=== PATIENT | female | born 1970 | race Two or more races ===

== ENCOUNTER 2020-10-18 22:43 | Inpatient (IN) | payer SELFPAY ==
[2020-10-18 23:19] LABS: ABSOLUTE BASOPHILS # (AUTO) 0.3 10^3/uL (0.0-0.2); ABSOLUTE EOSINOPHILS # (AUTO) 0.1 10^3/uL (0.0-0.6); ABSOLUTE LYMPHOCYTES (AUTO) 3.2 10^3/uL (0.5-4.7); ABSOLUTE MONOCYTES (AUTO) 0.4 10^3/uL (0.1-1.4); ABSOLUTE NEUT (AUTO) 11.1 10^3/uL (1.7-8.2); BASOPHILS % (AUTO) 2.1 % (0-2); EOSINOPHILS % (AUTO) 0.7 % (0-6); HEMATOCRIT 41.7 % (36.0-47.0); LYMPHOCYTES % (AUTO) 21.1 % (13-45); MEAN CORPUSCULAR HGB CONC 33.5 g/dL (32.0-36.0); MEAN CORPUSCULAR VOLUME 99 fl (80-97); MONOCYTES % (AUTO) 2.6 % (3-13); PLATELET COUNT 440 10^3/uL (150-450); RED BLOOD COUNT 4.23 10^6/uL (3.72-5.28); RED CELL DISTRIBUTION WIDTH 13.7 % (11.5-14.0); SEGMENTED NEUTROPHILS % (AUTO) 73.5 % (42-78); TOTAL CELLS COUNTED % (AUTO) 100 %; WHITE BLOOD COUNT 15.1 10^3/uL (4.0-10.5)
[2020-10-18 23:40] LABS: ALBUMIN 3.8 g/dL (3.5-5.0); ALKALINE PHOSPHATASE 82 U/L (38-126); ANION GAP 5 (5-19); ASPARTATE AMINO TRANSFERASE 36 U/L (14-36); BILIRUBIN,DIRECT 0.3 mg/dL (0.0-0.4); BILIRUBIN,TOTAL 0.5 mg/dL (0.2-1.3); BLOOD UREA NITROGEN 8 mg/dL (7-20); CALCIUM 8.5 mg/dL (8.4-10.2); CARBON DIOXIDE 24 mmol/L (22-30); CHLORIDE 102 mmol/L (98-107); CREATINE KINASE 237 U/L (30-135); GLUCOSE 127 mg/dL (75-110); POTASSIUM 3.1 mmol/L (3.6-5.0); TOTAL PROTEIN 6.8 g/dL (6.3-8.2)
[2020-10-18] MEDS ORDERED: FENTANYL CITRATE INJ/PF 100 MCG/2 ML AMPUL IV ONE (23:40)
--- NOTE | 2020-10-18 23:48 | ER Document Report ---
ED General - General Chief Complaint: Chest Pain Stated Complaint: CHEST PAIN Time Seen by Provider: 10/18/20 23:30 - HPI Notes: Patient is a 50-year-old female who presents emergency department for evaluation of sudden onset right-sided chest pain. She was at home, standing up, not performing any activities out of the ordinary, when she developed sharp right- sided chest pain. It radiates up into her shoulder a bit. It is worsened with deep breaths. She received Dilaudid, aspirin, nitroglycerin in route and nothing helped her pain in any way. She is never had any pain like this in the past. She states that she is not really sure if she is short of breath, she just knows it hurts significantly to take deep breaths. - Related Data Allergies/Adverse Reactions: No Known Allergies Allergy (Verified 10/18/20 23:25) Home Medications: Montelukast. Prednisone. Oxycodone. Albuterol. OTC- Naproxen Past Medical History - General Information source: Patient - Social History Smoking Status: Current Every Day Smoker Chew tobacco use (# tins/day): No Frequency of alcohol use: Occasional Drug Abuse: None Family History: Malignancy - Lung cancer Pulmonary Medical History: Reports: Hx Asthma Musculoskeletal Medical History: Reports Hx Musculoskeletal Trauma - And resultant chronic back pain Past Surgical History: Reports: Other - Spinal injections Review of Systems - Review of Systems Constitutional: No symptoms reported EENT: No symptoms reported Cardiovascular: See HPI Respiratory: See HPI Gastrointestinal: No symptoms reported Genitourinary: No symptoms reported Musculoskeletal: No symptoms reported Skin: No symptoms reported Neurological/Psychological: No symptoms reported Physical Exam - Vital signs Vitals: Pulse Ox 98 10/18/20 22:45 - Notes Notes: This is a 50-year-old female who appears her stated age, in a moderate amount of distress. Vital signs reviewed, please refer to chart. Head is normocephalic, atraumatic. Pupils equal round, reactive to light. Neck is supple without meningismus. Heart is tachycardic with normal S1-S2. Lungs are clear to auscu ltation bilaterally. Chest wall excursion is equal bilaterally. No gross abnormality to visual inspection of chest wall. Chest wall is tender to palpation on the right inferior ribs without subcutaneous emphysema. Abdomen is firm, global tenderness with guarding, bowel sounds throughout. Extremities without cyanosis, clubbing. Posterior calves are nontender. Peripheral pulses are equal. Skin is warm and dry. Patient is awake, alert, neurological exam is nonfocal. Course - Re-evaluation Re-evalutation: 10/18/20 23:49 Patient presents emergency department for evaluation. She had sudden onset right-sided chest pain. She is significantly uncomfortable. She received Dilaudid with no help. I will try fentanyl. Her breath sounds are equal. I have ordered a chest x-ray but this is still pending. Given the significance of her pain as well as the guarding on her abdominal exam as well CTA of the chest abdomen pelvis is ordered. We will continue to monitor. 10/19/20 00:49 Free air seen on the chest x-ray. CT of the abdomen pelvis with IV contrast ordered instead of the angiogram. I will contact surgery. 10/19/20 01:47 Still awaiting official read from radiology, Dr. Major is here to evaluate the patient. 10/19/20 01:52 Dr. Major will admit the patient. 10/19/20 02:00 Patient is noted to be hypokalemic. It is not a priority to replace at this time as patient is to be kept n.p.o. and she is going to the OR. I did make sure that nurse was to report this and follow-up when the patient will goes to the ICU for postoperative care. 10/19/20 02:14 K rider ordered. Request for large bore IV in the right upper extremity passed on to nursing. - Vital Signs Vital signs: Temp Pulse Resp BP Pulse Ox 98.9 F 40 H 145/93 H 97 10/18/20 22:55 10/19/20 00:01 10/19/20 00:00 10/19/20 00:01 - Laboratory Results Result Diagrams: 10/18/20 22:54 10/18/20 22:54 Laboratory Results Interpreted: 10/18/20 10/18/20 10/18/20 22:54 22:54 22:54 WBC 15.1 H MCV 99 H [place] % (Auto) 2.6 L Baso % (Auto) 2.1 H Absolute Neuts (auto) 11.1 H Absolute Basos (auto) 0.3 H Sodium 131.4 L Potassium 3.1 L Glucose 127 H Creatine Kinase 237 H CK-MB (CK-2) 6.55 H Critical Laboratory Results Reviewed: No Critical Results - Radiology Results Radiology Results Interpreted: 10/19/20 01:53 Chest X-Ray 10/18/20 23:31 IMPRESSION: Findings concerning for free intra-abdominal air. Further evaluation with CT abdomen and pelvis is recommended if clinically appropriate. This report contains findings that may be critical for patient care. Findings were discussed with Dr. Null by Dr. Davidson via telephone on 10/18/2020 at 9:40 PM [facility]. Abdomen/Pelvis CT 10/19/20 00:44 IMPRESSION: 1. Pneumoperitoneum and scattered intermediate density fluid, likely hemorrhage. 2. This is likely due to a perforated gastric ulcer along the distal lesser curvature. 3. Colonic diverticulosis. Cannot exclude diverticulitis, but there is no suspicious colonic wall thickening. Critical Radiology Results Reviewed: Yes Attending or Supervising Physician who Reviewed Radiology: BASHIR NULL M - EKG Interpretation by Me Additional EKG results interpreted by me: 10/18/20 23:50 Sinus tachycardia with a rate of 121 bpm. Left axis deviation. Normal intervals. No acute ST changes concerning for ischemia or infarction. No old studies available for comparison. Discharge - Discharge Clinical Impression: Perforated abdominal viscus, Hypokalemia Condition: Stable Disposition: ADMITTED INPATIENT Admitting Provider: Surgicalist - [place] [facility] Admitted: OR
[2020-10-18 23:51] LABS: CREATINE KINASE MB 6.55 ng/mL (<4.55)
[2020-10-19 00:04] LABS: TROPONIN I < 0.012 ng/mL
--- NOTE | 2020-10-19 00:47 | RADIOLOGY REPORT (SQ) ---
EXAM DESCRIPTION: X-RAY CHEST- One View CLINICAL HISTORY: Chest pain COMPARISON: None available TECHNIQUE: Single view of the chest. FINDINGS: There are overlying EKG leads. There are low lung volumes with compressive changes. The pulmonary vascularity is normal. The cardiomediastinal silhouette is normal in size. Evaluation of the visualized upper abdomen demonstrates crescent of lucency under the right hemidiaphragm concerning for free intra-abdominal air. Osseous structures appear grossly intact. IMPRESSION: Findings concerning for free intra-abdominal air. Further evaluation with CT abdomen and pelvis is recommended if clinically appropriate. This report contains findings that may be critical for patient care. Findings were discussed with Dr. Null by Dr. Davidson via telephone on 10/18/2020 at 9:40 PM PST.
[2020-10-19] MEDS ORDERED: PIPERACILLIN/TAZOBACTAM 3.375 GM VIAL IV ONE (00:59)
[2020-10-19] MEDS ORDERED: NORMAL SALINE 1000 ML 1,000 ML IV ONE ×2 (00:59→01:59)
--- NOTE | 2020-10-19 01:31 | RADIOLOGY REPORT (SQ) ---
EXAM DESCRIPTION: Site: CT ABD/PELVIS WITH IV ONLY RP: CT ABDOMEN PELVIS WITH IV CONTRAST CLINICAL HISTORY: 50 years Female; Free air under the diaphragm; sudden onset severe epigastric pain TECHNIQUE: CT of the abdomen and pelvis using intravenous contrast. All CT scans at this facility use dose modulation, iterative reconstruction, and/or weight based dosing when appropriate to reduce radiation dose to as low as reasonably achievable. COMPARISON: Chest radiograph 10/19/2020. No previous CT. FINDINGS: Mild linear atelectasis in both lower lobes. Abdomen: Pneumoperitoneum, mostly upper abdomen, with scattered foci adjacent to the stomach. Stomach: There is wall thickening/edema, mostly along the lesser curvature and antrum. At the superior aspect of the distal stomach along the lesser curvature, there are foci of air consistent with defect in the wall. Scattered intermediate density fluid is seen over the liver and spleen. Liver:No focal lesions. No intrahepatic ductal distention. Gallbladder:Nondistended Pancreas:Within normal limits Spleen:Within normal limits Right kidney:No hydronephrosis. No focal lesion. Left kidney:No hydronephrosis. No focal lesion. Adrenal glands:Within normal limits Vascular structures:Within normal limits Pelvis: Small bowel:No significant distention. Appendix:Within normal limits Colon: Scattered diverticula. No colonic distention. Moderate amount of intermediate density fluid in the pelvis. Bones: No acute bone findings. Bladder: Unremarkable. No pelvic mass or adenopathy. IMPRESSION: 1. Pneumoperitoneum and scattered intermediate density fluid, likely hemorrhage. 2. This is likely due to a perforated gastric ulcer along the distal lesser curvature. 3. Colonic diverticulosis. Cannot exclude diverticulitis, but there is no suspicious colonic wall thickening.
--- NOTE | 2020-10-19 02:21 | PDOC H&P ---
History of Present Illness Admission Date/PCP: 10/19/20 02:01 History of Present Illness: NORMA BARDALES is a 50 year old female Presents emergency department complaining of acute onset right upper quadrant pain, shortness of breath, anxiousness. She was brought by [facility], found to be tachycardic. She had abdominal tenderness, with a chest x-ray immediately showing free air. Patient underwent CT scan of the abdomen and pelvis and was found to have diffuse pneumoperitoneum, with air tracking along the lesser sac consistent with a perforated gastric ulcer. Surgery was consulted, patient was advised admission, to undergo exploratory laparotomy and necessary surgery. Of note patient takes Percocet [id number], smokes a pack and a half of cigarettes per day and has been on steroids for asthma. Past Medical History Past Medical History: Asthma, smoking abuse, chronic back pain, steroid use Pulmonary Medical History: Reports: Asthma Past Surgical History Past Surgical History: Reports: Other - Spinal injections Social History Information Source: Patient Smoking Status: Current Every Day Smoker Electronic Cigarette use?: No Frequency of Alcohol Use: Rare Hx Recreational Drug Use: No Family History Family History: None, Malignancy - Lung cancer Parental Family History Reviewed: No Children Family History Reviewed: No Sibling(s) Family History Reviewed.: No Medication/Allergy Allergies/Adverse Reactions: No Known Allergies Allergy (Verified 10/18/20 23:25) Review of Systems Constitutional: PRESENT: as per HPI Eyes: ABSENT: visual disturbances Ears: ABSENT: hearing changes Gastrointestinal: PRESENT: other - As per HPI Genitourinary: ABSENT: dysuria, hematuria Musculoskeletal: PRESENT: back pain, other - Chronic, takes narcotics [id number] Psychiatric: ABSENT: anxiety, depression, homidical ideation, suicidal ideation Endocrine: ABSENT: cold intolerance, heat intolerance, polydipsia, polyuria Physical Exam Vital Signs: Temp Pulse Resp BP Pulse Ox 98.9 F 40 H 145/93 H 97 10/18/20 22:55 10/19/20 00:01 10/19/20 00:00 10/19/20 00:01 Intake & Output 10/17/20 10/18/20 10/19/20 06:59 06:59 06:59 Weight 79.3 kg General appearance: PRESENT: other - Very anxious, agitated; heart rate in the 110s Head exam: PRESENT: normocephalic Eye exam: PRESENT: EOMI Mouth exam: PRESENT: dry mucosa Neck exam: PRESENT: full ROM Respiratory exam: PRESENT: rhonchi Cardiovascular exam: PRESENT: tachycardia Pulses: PRESENT: normal carotid pulses, normal radial pulses, normal femoral pulses GI/Abdominal exam: PRESENT: other - Rigid abdomen with guarding Rectal exam: PRESENT: deferred Extremities exam: PRESENT: full ROM Musculoskeletal exam: PRESENT: full ROM Neurological exam: PRESENT: oriented to person, oriented to place Psychiatric exam: PRESENT: anxious Results Laboratory Results: 10/18/20 22:54 10/18/20 22:54 10/18/20 10/18/20 22:54 22:54 WBC 15.1 H RBC 4.23 Hgb 14.0 Hct 41.7 MCV 99 H MCH 33.0 MCHC 33.5 RDW 13.7 Plt Count 440 Seg Neutrophils % 73.5 Sodium 131.4 L Potassium 3.1 L Chloride 102 Carbon Dioxide 24 Anion Gap 5 BUN 8 Creatinine 0.71 Est GFR ( Amer) > 60 Glucose 127 H Calcium 8.5 Total Bilirubin 0.5 AST 36 Alkaline Phosphatase 82 Total Protein 6.8 Albumin 3.8 10/18/20 10/18/20 22:54 22:54 Creatine Kinase 237 H CK-MB (CK-2) 6.55 H Troponin I < 0.012 Impressions: Chest X-Ray 10/18/20 23:31 IMPRESSION: Findings concerning for free intra-abdominal air. Further evaluation with CT abdomen and pelvis is recommended if clinically appropriate. This report contains findings that may be critical for patient care. Findings were discussed with Dr. Null by Dr. Davidson via telephone on 10/18/2020 at 9:40 PM [facility] [email or web address] Abdomen/Pelvis CT 10/19/20 00:44 IMPRESSION: 1. Pneumoperitoneum and scattered intermediate density fluid, likely hemorrhage. 2. This is likely due to a perforated gastric ulcer along the distal lesser curvature. 3. Colonic diverticulosis. Cannot exclude diverticulitis, but there is no suspicious colonic wall thickening. Assessment & Plan - Diagnosis (1) Perforated abdominal viscus Is this a current diagnosis for this admission?: Yes Plan: Impression: Acute abdomen, with pneumoperitoneum secondary to perforated gastric ulcer in 50-year-old white female with history of heavy smoking, chronic narcotic use and steroid use for asthma Plan: 1. Patient needs admission, IV fluids, intravenous antibiotics, potassium replacement 2. We will obtain rapid Covid test 3. Take patient to the operating room for exploratory laparotomy, necessary surgery. Explained to patient she will be sick, requiring hospitalization for several days (2) Chronic narcotic use Is this a current diagnosis for this admission?: Yes (3) COPD (chronic obstructive pulmonary disease) Is this a current diagnosis for this admission?: Yes (4) Smoker Is this a current diagnosis for this admission?: Yes (5) Asthma Is this a current diagnosis for this admission?: Yes (6) Hypokalemia Is this a current diagnosis for this admission?: Yes - Time Time Spent: 50 to 70 Minutes Critical Time spent with patient: 15-24 minutes Medications reviewed and adjusted accordingly: Yes Anticipated Discharge Disposition: Home, Self Care Anticipated Discharge Timeframe: within 72 hours - Inpatient Certification Based on my medical assessment, after consideration of the patient's comorbidities, presenting symptoms, or acuity I expect that the services needed warrant INPATIENT care.: Yes I certify that my determination is in accordance with my understanding of Medicare's requirements for reasonable and necessary INPATIENT services [42 CFR 412.3e].: Yes Medical Necessity: Need for Pain Control, Need for IV Antibiotics, Need for Surgery
[2020-10-19] MEDS: POTASSI CL 20 MEQ/50 ML RIDER 20 MEQ/50 ML RTUPB IV SCH ×2 (02:51→14:25)
[2020-10-19] MEDS ORDERED: ONDANSETRON HCL INJ/PF 4 MG/2 ML SDV ONE (03:06)
[2020-10-19] MEDS ORDERED: FENTANYL CITRATE INJ/PF 100 MCG/2 ML AMPUL ONE ×2 (03:06→05:28)
[2020-10-19] MEDS ORDERED: MORPHINE SULFATE 10 MG/ML INJ ONE (03:06)
[2020-10-19] MEDS ORDERED: SUGAMMADEX SODIUM 200 MG/2 ML SDV IV ONE (03:06)
[2020-10-19] MEDS ORDERED: DEXAMETHASONE SOD PHOSPHATE INJ 4 MG/1 ML VIAL ONE ×2 (03:06→03:10)
[2020-10-19] MEDS ORDERED: PROPOFOL INJ 200 MG/20 ML VIAL IV ONE (03:06)
[2020-10-19] MEDS ORDERED: MIDAZOLAM 2 MG/2 ML INJ ONE (03:06)
[2020-10-19] MEDS ORDERED: FENTANYL CITRATE INJ/PF 250 MCG/5 ML AMPULE ONE ×2 (03:06→03:16)
[2020-10-19] MEDS ORDERED: FENTANYL CITRATE INJ/PF 100 MCG/2 ML AMPUL IV PRN ×2 (03:56)
[2020-10-19] MEDS ORDERED: DIPHENHYDRAMINE HCL 50 MG/ML VIAL IV PRN (03:56)
[2020-10-19] MEDS ORDERED: MEPERIDINE HCL/PF INJ 25 MG/1 ML DISP.SYRIN IV PRN (03:56)
[2020-10-19] MEDS ORDERED: MORPHINE SULFATE 10 MG/ML INJ IV PRN (03:56)
[2020-10-19] MEDS ORDERED: PROMETHAZINE HCL INJ 25 MG/1 ML VIAL IV PRN ×2 (03:56)
[2020-10-19] MEDS ORDERED: ROPIVACAINE HCL 0.5% INJ/PF (5 MG/1 ML) 30 ML SDV ONE (04:07)
[2020-10-19] MEDS ORDERED: BUPIVACAINE INJ/PF LIPOSOME/PF 266 MG/20 ML SDV ONE (04:24)
[2020-10-19] MEDS ORDERED: FLUCONAZOLE 200 MG/NS RTU 200 MG/100 ML RTUPB IV ONE (04:47)
--- NOTE | 2020-10-19 05:01 | Operative Report ---
Operative Report DATE OF SURGERY: 10/19/20 PREOPERATIVE DIAGNOSIS: 1. Perforated gastric ulcer. 2. COPD. 3. Steroid u se. 4. Smoker POSTOPERATIVE DIAGNOSIS: Same with purulent peritonitis OPERATION: 1. Exploratory laparotomy with abdominal washout. 2. Primary richelle sure of anterior antral ulcer with Shahab patch. 3. Placement of peritoneal drains SURGEON: JOVANI FISHER ANESTHESIA: GA TISSUE REMOVED OR ALTERED: Small fragment of gastric ulcer wall COMPLICATIONS: None ESTIMATED BLOOD LOSS: 15 cc INTRAOPERATIVE FINDINGS: See below PROCEDURE: The patient was taken the preop holding her to the main operating room and general anesthesia was induced. Arms were abducted, Dominguez catheter inserted, with a return of mildly dark urine. The abdomen was prepped and draped in sterile fashion. Surgical timeout was conducted, surgical plan discussed. The abdomen was opened through a standard midline incision from the subxiphoid to the supraumbilical area. Peritoneal cavity was entered sharply with the release of air. There were several 100 cc of purulent peritoneal fluid aspira oscar. Bookwalter retractor system was established, and the peritoneal cavity was irrigated with close to 5 L of saline, ensuring fluid from around the liver, diaphragm, viscera, and pelvis was evacuated. The falciform ligament was taken down between clamps and 0 Vicryl ties. The findings were significant for approximately 1/2 to 2 cm ulcer, prepyloric, distal antrum, anterior surface. There was no active bleeding. The plane between the distal greater curvature of the stomach, and the transverse colon was opened slightly to exposed the distal lesser sac. This enabled us to manipulate the nasogastric tube through the pylorus, down into the first and second portions of the duodenum by approximately 15 cm. We now closed the distal antral ulcer with 5 interrupted 3-0 PDS sutures, in a vertical fashion. We then took the suture ends, after the knots were tied, and left them free. We mobilized a small pedicle of omentum with electrocautery and 3-0 Vicryl ties, and elevated it over the antral closure. We now secured the loose suture ends over the pedicle thereby securing it into position as a buttress. We irrigated the peritoneal cavity out 1 more time with a liter of saline. 2 l arge drains were placed 1 left abdominal wall terminating above the antrum in a cephalic position, and the right sided abdominal wall drain terminating over the duodenum. Drains were secured to the skin with 2-0 Prolene suture. There was no other pathology noted in the peritoneal cavity. Sponge needle counts correct. Midline wound closed with 2 double-stranded #1 PDS sutures, and a cc of Exparel deployed and subcutaneous tissue, wound approximated with milton in between portions of gauze packing. Patient tolerated the procedure well, extubated, taken to recovery room in stable condition.
[2020-10-19] MEDS: FENTANYL CITRATE INJ/PF 100 MCG/2 ML AMPUL IV PRN ×2 (05:28→05:33)
[2020-10-19] MEDS ORDERED: ALBUTEROL SULFATE HFA (90 MCG/PUFF) 8 GM MDI IH SCH (06:00)
[2020-10-19] MEDS ORDERED: ACETAMINOPHEN INJ/PF 1000 MG/100 ML SDV IV SCH (06:00)
[2020-10-19] MEDS: RINGERS SOLUTION,LACTATED 1,000 ML IV PRN ×2 (07:28→11:30)
[2020-10-19] MEDS: ACETAMINOPHEN 1,000 MG/100 ML RTUPB IV SCH ×4 (07:37→23:40)
[2020-10-19] MEDS ORDERED: ROCURONIUM BROMIDE INJ 50 MG/5 ML VIAL IV ONE (09:51)
[2020-10-19] MEDS ORDERED: SUCCINYLCHOLINE CHLORIDE INJ 200 MG/10 ML VIAL ONE (09:51)
[2020-10-19 09:53] LABS: ANION GAP 5 (5-19); BLOOD UREA NITROGEN 8 mg/dL (7-20); CALCIUM 7.8 mg/dL (8.4-10.2); CARBON DIOXIDE 22 mmol/L (22-30); CHLORIDE 108 mmol/L (98-107); GLUCOSE 114 mg/dL (75-110)
[2020-10-19 10:03] LABS: POTASSIUM 4.9 mmol/L (3.6-5.0)
[2020-10-19] MEDS: FAMOTIDINE INJ/PF 20 MG/2 ML SDV IV SCH ×2 (12:49→21:50)
[2020-10-19] MEDS: AMPICILLIN SODIUM/SULBACTAM NA 3 GM in NORMAL SALINE 100 ML IV SCH ×3 (13:09→21:49)
[2020-10-19] MEDS: ALBUTEROL SULFATE HFA (90 MCG/PUFF) 8 GM MDI IH SCH ×3 (13:12→17:58)
--- NOTE | 2020-10-19 14:27 | PDOC PROGRESS REPORT ---
Subjective Date:: 10/19/20 Reason For Visit: PERFORATED VISCUS Patient on the floor, extubated, complaining of pain. Of note patient has received IV Toradol, IV acetaminophen, and Exparel rel at the conclusion of the operation. She remains hemodynamically stable. Physical Exam Vital Signs: Temp Pulse Resp BP Pulse Ox 98.3 F 90 18 142/83 H 96 10/19/20 09:13 10/19/20 09:13 10/19/20 09:13 10/19/20 09:13 10/19/20 09:13 Intake & Output 10/18/20 10/19/20 10/20/20 06:59 06:59 06:59 Intake Total 1700 300 Output Total 505 Balance 1195 300 Weight 79.3 kg General appearance: PRESENT: mild distress GI/Abdominal exam: PRESENT: other - Abdominal binder on, drains with serosanguineous output. Appropriately tender. Results Laboratory Results: 10/18/20 22:54 10/19/20 08:40 10/18/20 10/18/20 10/19/20 22:54 22:54 08:40 WBC 15.1 H RBC 4.23 Hgb 14.0 Hct 41.7 MCV 99 H MCH 33.0 MCHC 33.5 RDW 13.7 Plt Count 440 Seg Neutrophils % 73.5 Sodium 131.4 L 134.6 L Potassium 3.1 L 4.9 D Chloride 102 108 H Carbon Dioxide 24 22 Anion Gap 5 5 BUN 8 8 Creatinine 0.71 0.63 Est GFR ( Amer) > 60 > 60 Glucose 127 H 114 H Calcium 8.5 7.8 L Total Bilirubin 0.5 AST 36 Alkaline Phosphatase 82 Total Protein 6.8 Albumin 3.8 10/18/20 10/18/20 22:54 22:54 Creatine Kinase 237 H CK-MB (CK-2) 6.55 H Troponin I < 0.012 Impressions: Chest X-Ray 10/18/20 23:31 IMPRESSION: Findings concerning for free intra-abdominal air. Further evaluation with CT abdomen and pelvis is recommended if clinically appropriate. This report contains findings that may be critical for patient care. Findings were discussed with Dr. Null by Dr. Davidson via telephone on 10/18/2020 at 9:40 PM PST. Abdomen/Pelvis CT 10/19/20 00:44 IMPRESSION: 1. Pneumoperitoneum and scattered intermediate density fluid, likely hemorrhage. 2. This is likely due to a perforated gastric ulcer along the distal lesser curvature. 3. Colonic diverticulosis. Cannot exclude diverticulitis, but there is no suspicious colonic wall thickening. Assessment & Plan - Diagnosis (1) Perforated abdominal viscus Is this a current diagnosis for this admission?: Yes Plan: Impression: Patient is 8 hours status post exploratory laparotomy, oversewing of perforated gastric ulcer with patch, doing well thus far, with adequate fluid resuscitation, normalization of potassium. Plan: 1. Pulmonary toilet, out of bed to chair ideally today 2. I have consulted the hospitalist service to assist with management of medical issues; patient has been on 10 mg of prednisone orally for at least 6 months by her report for asthma. She has demonstrated no evidence of adrenal insufficiency thus far (2) Chronic narcotic use Is this a current diagnosis for this admission?: Yes (3) COPD (chronic obstructive pulmonary disease) Is this a current diagnosis for this admission?: Yes (4) Smoker Is this a current diagnosis for this admission?: Yes (5) Asthma Is this a current diagnosis for this admission?: Yes (6) Hypokalemia Is this a current diagnosis for this admission?: Yes - Time Anticipated Discharge Disposition: Home, Self Care Anticipated Discharge Timeframe: within 72 hours
[2020-10-19] MEDS: KETOROLAC TROMETHAMINE INJ/PF 30 MG/1 ML SDV IV PRN ×2 (15:37→21:49)
[2020-10-19] MEDS ORDERED: NICOTINE 21 MG/24 HR PATCH.TD24 TD PRN (18:20)
--- NOTE | 2020-10-19 18:29 | PDOC CONSULTATION ---
Consultation Consult Date: 10/19/20 Attending physician:: JOVANI MAJOR Provider Consulted: YON GALVAN History of Present Illness Admission Date/PCP: 10/19/20 02:01 Patient complains of: abd pain History of Present Illness: Per H&P by Dr. Major: NORMA BARDALES is a 50 year old female Presents emergency department complaining of acute onset right upper quadrant pain, shortness of breath, anxiousness. She was [facility] by [facility], found to be tachycardic. She had abdominal tenderness, with a chest x-ray immediately showing free air. Patient underwent CT scan of the abdomen and pelvis and was found to have diffuse pneumoperitoneum, with air tracking along the lesser sac consistent with a perforated gastric ulcer. Surgery was consulted, patient was advised admission, to undergo exploratory laparotomy and necessary surgery. Of note patient takes Percocet [id number], smokes a pack and a half of cigarettes per day and has been on steroids for asthma. Hospitalist team is consulted for medical management. Patient was seen on morning rounds with her significant other at bedside. She is found resting in bed on supplemental oxygen 2 L/min. Supplemental oxygen was turned off and she continued to maintain oxygen saturations of 90 to 94% without tachypnea or increased work of breathing, however, it did note on telemetry that her heart rate increased from 72 to 96. I expect that some of this was related to his comfort while talking to me and potentially anxiety. A patient reports that she began daily prednisone therapy approximately 2 months ago; prescribed by her pain management provider (?). She reports that she does not have a primary care provider here locally; just moved from [place]. She denies having ever been seen by pulmonology. She further reports that she is prescribed oxycodone 20 every 6 hours, however, she typically only takes 1-2 doses a day. She states this is for treatment of back pain that began approximately 6 months ago r/t a workplace injury. Pain management [place]. Other than abdominal discomfort, improved from yesterday, and nausea, she has no complaints today. She specifically denies fever, chills, chest pain, palpitations, dyspnea, cough. She has no questions or concerns at this time. No concerns per nursing. Past Medical History Cardiac Medical History: Reports: None Pulmonary Medical History: Reports: Asthma EENT Medical History: Reports: None Neurological Medical History: Reports: None Endocrine Medical History: Reports: Obesity Renal/ Medical History: Reports: None Malignancy Medical History: Reports: None GI Medical History: Reports: None Musculoskeltal Medical History: Reports: Other - Chronic back pain Skin Medical History: Reports: None Psychiatric Medical History: Reports: Tobacco Dependency Denies: Depression Hematology: Reports: None Infectious Medical History: Reports: None Past Surgical History Past Surgical History: Reports: Other - Spinal injections Social History Information Source: Patient Lives with: Family Smoking Status: Current Every Day Smoker Electronic Cigarette use?: No Frequency of Alcohol Use: Rare Hx Recreational Drug Use: No Hx Prescription Drug Abuse: No - Advance Directive Resuscitation Status: Full Code Family History Family History: None, Malignancy - Lung cancer Parental Family History Reviewed: Yes Children Family History Reviewed: Yes Sibling(s) Family History Reviewed.: Yes Medication/Allergy Home Medications: Albuterol Sulfate [Proair HFA Inhalation Aerosol 8.5 gm MDI] 2 puff IH Q6HP PRN 10/19/20 Montelukast Sodium [Singulair 10 mg Tablet] 10 mg PO QHS 10/19/20 Oxycodone HCl 20 mg PO QID 10/19/20 Prednisone [Deltasone 10 mg Tablet] 10 mg PO DAILY 10/19/20 Allergies/Adverse Reactions: No Known Allergies Allergy (Verified 10/18/20 23:25) Review of Systems Constitutional: PRESENT: fatigue. ABSENT: chills, fever(s), headache(s), weight gain, weight loss Eyes: ABSENT: visual disturbances Ears: ABSENT: hearing changes Cardiovascular: ABSENT: chest pain, dyspnea on exertion, edema, orthropnea, palpitations Respiratory: ABSENT: cough, hemoptysis Gastrointestinal: PRESENT: abdominal pain, nausea. ABSENT: constipation, diarrhea, hematemesis, hematochezia, vomiting Genitourinary: ABSENT: dysuria, hematuria Musculoskeletal: ABSENT: joint swelling Integumentary: ABSENT: rash, wounds Neurological: ABSENT: abnormal gait, abnormal speech, confusion, dizziness, focal weakness, syncope Psychiatric: ABSENT: anxiety, depression, homidical ideation, suicidal ideation Endocrine: ABSENT: cold intolerance, heat intolerance, polydipsia, polyuria Hematologic/Lymphatic: ABSENT: easy bleeding, easy bruising Physical Exam Vital Signs: Temp Pulse Resp BP Pulse Ox 98.3 F 90 18 142/83 H 96 01/17/21 09:13 10/19/20 09:13 10/19/20 09:13 10/19/20 09:13 10/19/20 09:13 Intake & Output 10/18/20 10/19/20 10/20/20 06:59 06:59 06:59 Intake Total 1700 400 Output Total 505 Balance 1195 400 Weight 79.3 kg General appearance: PRESENT: no acute distress, well-developed, well-nourished - Overweight Head exam: PRESENT: atraumatic, normocephalic Eye exam: PRESENT: conjunctiva pink, EOMI, PERRLA. ABSENT: scleral icterus Mouth exam: PRESENT: moist, tongue midline Teeth exam: PRESENT: poor dentation Respiratory exam: PRESENT: clear to auscultation pepe, symmetrical, unlabored, other - Supplemental oxygen by nasal cannula. ABSENT: rales, rhonchi, wheezes Cardiovascular exam: PRESENT: RRR. ABSENT: diastolic murmur, rubs, systolic murmur Pulses: PRESENT: normal dorsalis pedis pul Vascular exam: PRESENT: normal capillary refill GI/Abdominal exam: PRESENT: distended, tenderness, other - NG tube to suction. ABSENT: guarding, mass, organolmegaly, rebound Rectal exam: PRESENT: deferred Extremities exam: PRESENT: full ROM. ABSENT: calf tenderness, clubbing, pedal edema Neurological exam: PRESENT: alert, awake, oriented to person, oriented to place, oriented to time, oriented to situation, CN II-XII grossly intact. ABSENT: motor sensory deficit Psychiatric exam: PRESENT: appropriate affect, normal mood. ABSENT: homicidal ideation, suicidal ideation Skin exam: PRESENT: dry, intact, warm. ABSENT: cyanosis, rash Results Laboratory Results: 10/18/20 22:54 10/19/20 08:40 10/18/20 10/18/20 10/19/20 22:54 22:54 08:40 WBC 15.1 H RBC 4.23 Hgb 14.0 Hct 41.7 MCV 99 H MCH 33.0 MCHC 33.5 RDW 13.7 Plt Count 440 Seg Neutrophils % 73.5 Sodium 131.4 L 134.6 L Potassium 3.1 L 4.9 D Chloride 102 108 H Carbon Dioxide 24 22 Anion Gap 5 5 BUN 8 8 Creatinine 0.71 0.63 Est GFR ( Amer) > 60 > 60 Glucose 127 H 114 H Calcium 8.5 7.8 L Total Bilirubin 0.5 AST 36 Alkaline Phosphatase 82 Total Protein 6.8 Albumin 3.8 10/18/20 10/18/20 22:54 22:54 Creatine Kinase 237 H CK-MB (CK-2) 6.55 H Troponin I < 0.012 Impressions: Chest X-Ray 10/18/20 23:31 IMPRESSION: Findings concerning for free intra-abdominal air. Further evaluation with CT abdomen and pelvis is recommended if clinically appropriate. This report contains findings that may be critical for patient care. Findings were discussed with Dr. Null by Dr. Davidson via telephone on 10/18/2020 at 9:40 PM [facility]. Abdomen/Pelvis CT 10/19/20 00:44 IMPRESSION: 1. Pneumoperitoneum and scattered intermediate density fluid, likely hemorrhage. 2. This is likely due to a perforated gastric ulcer along the distal lesser curvature. 3. Colonic diverticulosis. Cannot exclude diverticulitis, but there is no suspicious colonic wall thickening. Assessment and Plan - Diagnosis (1) Asthma Qualifiers: Asthma severity: moderate Asthma persistence: persistent Is this a current diagnosis for this admission?: Yes Plan: The patient reports daily asthma symptoms; states she uses her rescue inhaler greater than 12 times a day. She reports that she was recently started on daily prednisone therapy. Her only other management medication is Singulair. Notably, she has not reported any asthma symptoms in the 24 hours she has been here. Further, suspect that she has related to her heavy tobacco use. Will provide supplemental oxygenas needed to maintain saturations greater than 8 9%. As needed Albuterol HFA. Avoid narcotics secondary to perforated peptic ulcer. Currently n.p.o.; resume Singulair once tolerating oral. Monitor for frequency of symptoms and request for albuterol inhaler for treatment of asthma-like symptoms. Patient may benefit from initiation of maintenance/preventative daily therapies. Smoking cessation strongly encouraged. Pulmonary toilet is encouraged with incentive spirometer, flutter valve, and early ambulation. R (2) Chronic back pain Qualifiers: Back pain location: low back pain Back pain laterality: midline Sciatica presence: without sciatica Qualified Code(s): M54.5 - Low back pain; G89.29 - Other chronic pain Is this a current diagnosis for this admission?: Yes Plan: Patient reports chronic back pain greater than 6 months; unchanged from previous. Patient states that she is followed by pain management provider in [place] and was prescribed oxycodone 20 mg every 6 hours. She further states that she typically only took 1-2 tabs daily and otherwise used [id number] medications for treatment of her pain. [place] controlled substance database was utilized (searched [place], [place], [place], [place], and [place]) to verify prescription use; no prescriptions were found. She is currently receiving scheduled IV Tylenol. As the patient is a poor historian with questionable reliable report of her chronic opiate medications; will monitor for evidence of acute pain and/or withdrawal and initiate appropriate IV narcotic analgesics at that time. Strongly recommend establishing with a local PCP for further management of her pain. (3) Hypokalemia Is this a current diagnosis for this admission?: Yes Plan: Replete. Secondary to GI losses. Follow-up chemistry. (4) Perforated abdominal viscus Is this a current diagnosis for this admission?: Yes (5) Tobacco dependence Is this a current diagnosis for this admission?: Yes Plan: Cessation strongly encouraged. Nicotine replacement therapies provided. - Time Time Spent with patient: 35 or more minutes Medications reviewed and adjusted accordingly: Yes Anticipated Discharge Disposition: Home with Home Health Anticipated Discharge Timeframe: TBD
--- NOTE | 2020-10-19 20:44 | EKG REPORT ---
SEVERITY:- ABNORMAL ECG - SINUS TACHYCARDIA LEFT ATRIAL ABNORMALITY BORDERLINE LEFT AXIS DEVIATION ABNRM R PROG, CONSIDER ASMI OR LEAD PLACEMENT : Confirmed by: Janice Curry MD 19-Oct-2020 20:43:44
[2020-10-20] MEDS: ALBUTEROL SULFATE HFA (90 MCG/PUFF) 8 GM MDI IH SCH ×3 (00:21→11:31)
[2020-10-20] MEDS: MORPHINE SULFATE 10 MG/ML INJ IV PRN ×4 (00:54→20:50)
[2020-10-20] MEDS: ACETAMINOPHEN 1,000 MG/100 ML RTUPB IV SCH ×3 (05:54→17:27)
[2020-10-20] MEDS: AMPICILLIN SODIUM/SULBACTAM NA 3 GM in NORMAL SALINE 100 ML IV SCH ×3 (05:57→21:40)
[2020-10-20 06:46] LABS: HEMATOCRIT 33.2 % (36.0-47.0); MEAN CORPUSCULAR HEMOGLOBIN 33.1 pg (27.0-33.4); MEAN CORPUSCULAR HGB CONC 33.6 g/dL (32.0-36.0); MEAN CORPUSCULAR VOLUME 99 fl (80-97); PLATELET COUNT 258 10^3/uL (150-450); RED BLOOD COUNT 3.37 10^6/uL (3.72-5.28); RED CELL DISTRIBUTION WIDTH 13.6 % (11.5-14.0); WHITE BLOOD COUNT 15.1 10^3/uL (4.0-10.5)
[2020-10-20 06:55] LABS: HEMOGLOBIN 11.2 g/dL (12.0-15.5)
[2020-10-20 07:04] LABS: BLOOD UREA NITROGEN 15 mg/dL (7-20); CALCIUM 7.9 mg/dL (8.4-10.2); CHLORIDE 106 mmol/L (98-107); GLUCOSE 89 mg/dL (75-110); POTASSIUM 4.2 mmol/L (3.6-5.0)
[2020-10-20 07:11] LABS: ANION GAP 7 (5-19); CARBON DIOXIDE 24 mmol/L (22-30)
[2020-10-20] MEDS: RINGERS SOLUTION,LACTATED 1,000 ML IV PRN ×2 (07:44→16:40)
[2020-10-20] MEDS ORDERED: INFLUENZA QUAD (6MOS+) 2020-21 VAC 0.5 ML SYR IM ONE (08:00)
[2020-10-20] MEDS: FAMOTIDINE INJ/PF 20 MG/2 ML SDV IV SCH (09:47)
[2020-10-20] MEDS: FLUCONAZOLE 200 MG/NS RTU 200 MG/100 ML RTUPB IV SCH (09:47)
--- NOTE | 2020-10-20 13:45 | PDOC PROGRESS REPORT ---
Subjective Date:: 10/20/20 Reason For Visit: PERFORATED VISCUS Physical Exam Vital Signs: Temp Pulse Resp BP Pulse Ox 98.6 F 73 19 134/87 H 93 10/20/20 09:01 10/20/20 07:31 10/20/20 04:18 10/20/20 07:31 10/20/20 07:31 Intake & Output 10/19/20 10/20/20 10/21/20 06:59 06:59 06:59 Intake Total 1700 800 800 Output Total 505 725 Balance 1195 75 800 Weight 79.3 kg 77.2 kg Results Laboratory Results: 10/20/20 06:07 10/20/20 06:07 10/20/20 10/20/20 06:07 06:07 WBC 15.1 H RBC 3.37 L Hgb 11.2 L D Hct 33.2 L MCV 99 H MCH 33.1 MCHC 33.6 RDW 13.6 Plt Count 258 Sodium 136.5 L Potassium 4.2 Chloride 106 Carbon Dioxide 24 Anion Gap 7 BUN 15 Creatinine 0.69 Est GFR ( Amer) > 60 Glucose 89 Calcium 7.9 L 10/18/20 10/18/20 22:54 22:54 Creatine Kinase 237 H CK-MB (CK-2) 6.55 H Troponin I < 0.012 Impressions: Chest X-Ray 10/18/20 23:31 IMPRESSION: Findings concerning for free intra-abdominal air. Further evaluation with CT abdomen and pelvis is recommended if clinically appropriate. This report contains findings that may be critical for patient care. Findings were discussed with Dr. Null by Dr. Davidson via telephone on 10/18/2020 at 9:40 PM [facility]. Abdomen/Pelvis CT 10/19/20 00:44 IMPRESSION: 1. Pneumoperitoneum and scattered intermediate density fluid, likely hemorrhage. 2. This is likely due to a perforated gastric ulcer along the distal lesser curvature. 3. Colonic diverticulosis. Cannot exclude diverticulitis, but there is no suspicious colonic wall thickening. Assessment & Plan - Diagnosis (1) Perforated gastric ulcer Qualifiers: Gastric ulcer chronicity: acute Qualified Code(s): K25.1 - Acute gastric ulcer with perforation Is this a current diagnosis for this admission?: Yes - Time Anticipated Discharge Disposition: Home, Self Care Anticipated Discharge Timeframe: unknown - Plan Summary Plan Summary: 50-year-old female status post exploratory laparotomy for a perforated gastric ulcer. The patient reports abdominal discomfort today, however but reports that her pain medicine is helping. She was up to the chair yesterday. Her Dominguez is still in place. I have encouraged her to get out of bed today. I will contact physical therapy for their assistance. I will order her Dominguez removed. I have changed her midline dressing, and removed the packing. Initiate dry dressing changes daily. Maintain NG tube for now. Plan for upper GI series in the next 48 to 72 hours. Switch to Protonix 40 mg IV twice daily. Continue to monitor closely.
[2020-10-20] MEDS ORDERED: ALBUTEROL SULFATE 0.083% NEB 2.5 MG/3 ML AMPUL NEB PRN (14:14)
--- NOTE | 2020-10-20 14:21 | PDOC PROGRESS REPORT ---
Subjective Date:: 10/20/20 Subjective:: Patient was seen on afternoon rounds patient found resting in bed, comfortably, on room air. NG tube in place to wall suction. She reports abdominal discomfort today, however, states that the pain medication has been adequate. She denies dyspnea, cough, wheezing. She further denies fever, chills, chest pain, palpitations, nausea, vomiting. She has no questions or concerns at this time. No concerns per nursing; has only required 1 dose of morphine this shift. Reason For Visit: PERFORATED VISCUS Physical Exam Vital Signs: Temp Pulse Resp BP Pulse Ox 98.6 F 73 19 134/87 H 93 10/20/20 09:01 10/20/20 07:31 10/20/20 04:18 10/20/20 07:31 10/20/20 07:31 Intake & Output 10/19/20 10/20/20 10/21/20 06:59 06:59 06:59 Intake Total 9490 074 9114 Output Total 505 725 Balance 1195 75 1800 Weight 79.3 kg 77.2 kg General appearance: PRESENT: no acute distress, cooperative, well-developed, well-nourished Head exam: PRESENT: atraumatic, normocephalic Eye exam: PRESENT: conjunctiva pink, EOMI, PERRLA. ABSENT: scleral icterus Mouth exam: PRESENT: moist, tongue midline Teeth exam: PRESENT: poor dentation Respiratory exam: PRESENT: symmetrical, unlabored, wheezes - Expiratory, other - Room air. ABSENT: rales, rhonchi Cardiovascular exam: PRESENT: RRR. ABSENT: diastolic murmur, rubs, systolic murmur Pulses: PRESENT: normal dorsalis pedis pul Vascular exam: PRESENT: normal capillary refill GI/Abdominal exam: PRESENT: normal bowel sounds, soft, tenderness, other - Surgical incision with dressing in place. NG tube to suction. ABSENT: distended, guarding, mass, organolmegaly, rebound Rectal exam: PRESENT: deferred Extremities exam: PRESENT: full ROM. ABSENT: calf tenderness, clubbing, pedal edema Neurological exam: PRESENT: alert, awake, oriented to person, oriented to place, oriented to time, oriented to situation, CN II-XII grossly intact. ABSENT: motor sensory deficit Psychiatric exam: PRESENT: appropriate affect, normal mood. ABSENT: homicidal ideation, suicidal ideation Skin exam: PRESENT: dry, intact, warm. ABSENT: cyanosis, rash Results Laboratory Results: 10/20/20 06:07 10/20/20 06:07 10/20/20 10/20/20 06:07 06:07 WBC 15.1 H RBC 3.37 L Hgb 11.2 L D Hct 33.2 L MCV 99 H MCH 33.1 MCHC 33.6 RDW 13.6 Plt Count 258 Sodium 136.5 L Potassium 4.2 Chloride 106 Carbon Dioxide 24 Anion Gap 7 BUN 15 Creatinine 0.69 Est GFR ( Amer) > 60 Glucose 89 Calcium 7.9 L 10/18/20 10/18/20 22:54 22:54 Creatine Kinase 237 H CK-MB (CK-2) 6.55 H Troponin I < 0.012 Impressions: Chest X-Ray 10/18/20 23:31 IMPRESSION: Findings concerning for free intra-abdominal air. Further evaluation with CT abdomen and pelvis is recommended if clinically appropriate. This report contains findings that may be critical for patient care. Findings were discussed with Dr. Null by Dr. Davidson via telephone on 10/18/2020 at 9:40 PM [facility]. Abdomen/Pelvis CT 10/19/20 00:44 IMPRESSION: 1. Pneumoperitoneum and scattered intermediate density fluid, likely hemorrhage. 2. This is likely due to a perforated gastric ulcer along the distal lesser curvature. 3. Colonic diverticulosis. Cannot exclude diverticulitis, but there is no suspicious colonic wall thickening. Assessment and Plan - Diagnosis (1) Asthma Qualifiers: Asthma severity: moderate Asthma persistence: persistent Is this a current diagnosis for this admission?: Yes Plan: Moderate persistent asthma. Likely COPD/chronic bronchitis component due to the patient's heavy tobacco use. Will provide supplemental oxygenas needed to maintain saturations greater than 89%. Start DuoNeb twice daily scheduled. As needed albuterol nebs. Consider pulmicort nebs. Avoid systemic steroids secondary to perforated peptic ulcer. Currently n.p.o.; resume Singulair once tolerating oral. Monitor for frequency of symptoms and request for albuterol inhaler for treatment of asthma-like symptoms. Patient may benefit from initiation of maintenance/preventative daily therapies. Smoking cessation strongly encouraged. Pulmonary toilet is encouraged with incentive spirometer, flutter valve, and early ambulation. (2) Chronic back pain Qualifiers: Back pain location: low back pain Back pain laterality: midline Sciatica presence: without sciatica Qualified Code(s): M54.5 - Low back pain; G89.29 - Other chronic pain Is this a current diagnosis for this admission?: Yes Plan: Patient reports chronic back pain greater than 6 months; unchanged from previous. Patient states that she is followed by pain management provider in [place] and was prescribed oxycodone 20 mg every 6 hours. She further states that she typically only took 1-2 tabs daily and otherwise used [id number] medications for treatment of her pain. [place] controlled substance database was utilized (searched [place], [place], [place], [place], and [place]) to verify prescription use; no prescriptions were found. She is currently receiving scheduled IV Tylenol and prn IV Morphine. As the patient is a poor historian with questionable reliable report of her chronic opiate medications; will monitor for evidence of uncontrolled pain and/or withdrawal and adjust morphine dosing as indicated. Strongly recommend establishing with a local PCP for further management of her pain. (3) Hypokalemia Is this a current diagnosis for this admission?: Yes Plan: Replete. Secondary to GI losses. Follow chemistry. (4) Perforated abdominal viscus Is this a current diagnosis for this admission?: Yes Plan: Primary plan per Surgery. (5) Tobacco dependence Is this a current diagnosis for this admission?: Yes Plan: Cessation strongly encouraged. Nicotine replacement therapies provided. - Time Time Spent with patient: 15-24 minutes Medications reviewed and adjusted accordingly: Yes Anticipated Discharge Disposition: Home, Self Care Anticipated Discharge Timeframe: TBD
[2020-10-20] MEDS: IPRATROPIUM/ALBUTEROL 0.5-2.5 MG/3 ML AMPUL NEB SCH (21:06)
[2020-10-20] MEDS: PANTOPRAZOLE SODIUM 40 MG VIAL IV SCH (21:40)
[2020-10-21] MEDS: ACETAMINOPHEN 1,000 MG/100 ML RTUPB IV SCH ×5 (01:09→23:39)
[2020-10-21] MEDS: MORPHINE SULFATE 10 MG/ML INJ IV PRN ×6 (01:10→22:25)
[2020-10-21] MEDS: RINGERS SOLUTION,LACTATED 1,000 ML IV PRN ×2 (03:59→19:16)
[2020-10-21 05:14] LABS: HEMATOCRIT 31.4 % (36.0-47.0); HEMOGLOBIN 10.8 g/dL (12.0-15.5); MEAN CORPUSCULAR HEMOGLOBIN 33.9 pg (27.0-33.4); MEAN CORPUSCULAR HGB CONC 34.5 g/dL (32.0-36.0); MEAN CORPUSCULAR VOLUME 98 fl (80-97); PLATELET COUNT 266 10^3/uL (150-450); RED BLOOD COUNT 3.19 10^6/uL (3.72-5.28); RED CELL DISTRIBUTION WIDTH 13.5 % (11.5-14.0); WHITE BLOOD COUNT 13.3 10^3/uL (4.0-10.5)
[2020-10-21 05:35] LABS: ANION GAP 5 (5-19); BLOOD UREA NITROGEN 14 mg/dL (7-20); CARBON DIOXIDE 24 mmol/L (22-30); CHLORIDE 107 mmol/L (98-107); POTASSIUM 3.8 mmol/L (3.6-5.0)
[2020-10-21] MEDS: AMPICILLIN SODIUM/SULBACTAM NA 3 GM in NORMAL SALINE 100 ML IV SCH ×3 (05:38→21:22)
[2020-10-21 06:36] LABS: GLUCOSE 63 mg/dL (75-110)
[2020-10-21] MEDS: IPRATROPIUM/ALBUTEROL 0.5-2.5 MG/3 ML AMPUL NEB SCH ×2 (08:06→20:08)
--- NOTE | 2020-10-21 09:03 | PDOC PROGRESS REPORT ---
Subjective Date:: 10/21/20 Subjective:: feels ok Reason For Visit: PERFORATED VISCUS Physical Exam Vital Signs: Temp Pulse Resp BP Pulse Ox 98.3 F 72 18 146/82 H 95 10/21/20 07:56 10/21/20 07:00 10/21/20 03:53 10/21/20 03:53 10/21/20 03:53 Intake & Output 10/20/20 10/21/20 10/22/20 06:59 06:59 06:59 Intake Total 800 3700 Output Total 725 1365 Balance 75 2335 Weight 77.2 kg 76.5 kg General appearance: PRESENT: no acute distress Head exam: PRESENT: normocephalic Eye exam: PRESENT: EOMI Ear exam: PRESENT: normal external ear exam Mouth exam: PRESENT: moist Neck exam: PRESENT: full ROM Respiratory exam: PRESENT: clear to auscultation pepe Cardiovascular exam: PRESENT: RRR Pulses: PRESENT: normal femoral pulses, normal dorsalis pedis pul Breast: PRESENT: Normal GI/Abdominal exam: PRESENT: soft, other - catalina's both serous ng bilous, wound clean dry, min drainage Rectal exam: PRESENT: deferred Extremities exam: PRESENT: full ROM Musculoskeletal exam: PRESENT: full ROM Neurological exam: PRESENT: alert, awake, oriented to person, oriented to place Psychiatric exam: PRESENT: appropriate affect Skin exam: PRESENT: dry Results Laboratory Results: 10/21/20 04:43 10/21/20 04:43 10/21/20 10/21/20 04:43 04:43 WBC 13.3 H RBC 3.19 L Hgb 10.8 L Hct 31.4 L MCV 98 H MCH 33.9 H MCHC 34.5 RDW 13.5 Plt Count 266 Sodium 136.3 L Potassium 3.8 Chloride 107 Carbon Dioxide 24 Anion Gap 5 BUN 14 Creatinine 0.69 Est GFR ( Amer) > 60 Glucose 63 L Calcium 8.0 L 10/18/20 10/18/20 22:54 22:54 Creatine Kinase 237 H CK-MB (CK-2) 6.55 H Troponin I < 0.012 Impressions: Chest X-Ray 10/18/20 23:31 IMPRESSION: Findings concerning for free intra-abdominal air. Further evaluation with CT abdomen and pelvis is recommended if clinically appropriate. This report contains findings that may be critical for patient care. Findings were discussed with Dr. Null by Dr. Davidson via telephone on 10/18/2020 at 9:40 PM PST. Abdomen/Pelvis CT 10/19/20 00:44 IMPRESSION: 1. Pneumoperitoneum and scattered intermediate density fluid, likely hemorrhage. 2. This is likely due to a perforated gastric ulcer along the distal lesser curvature. 3. Colonic diverticulosis. Cannot exclude diverticulitis, but there is no suspicious colonic wall thickening. Assessment & Plan - Time Anticipated Discharge Disposition: Home, Self Care Anticipated Discharge Timeframe: unk - Plan Summary Plan Summary: s/p perfed gastric ulcer closed primarily and omental patch pod 2 doing ok pain better controlled iwth ms catalina's serous plan increase activity cont ng today awaiting on return of bowel function will plan on contrast study tomorrow or thurs.
[2020-10-21] MEDS: FLUCONAZOLE 200 MG/NS RTU 200 MG/100 ML RTUPB IV SCH (09:54)
[2020-10-21] MEDS: PANTOPRAZOLE SODIUM 40 MG VIAL IV SCH ×2 (09:54→21:23)
--- NOTE | 2020-10-21 14:25 | PDOC PROGRESS REPORT ---
Subjective Date:: 10/21/20 Subjective:: Patient seen on morning rounds. Resting upright in chair comfortably on room air. NG tube in place. Reports discomfort in abdomen, specifically with deep breath, however, tells me pain is well controlled. Has used Albuterol inhaler total of 2x since Tuesday. Has utilized incentive spirometer though minimally, given discomfort in abdomen. Feels asthma well controlled at this time. Denies SOB, wheezing or cough. Further denies fever, chills, chest pain, palpitations, nausea, vomiting. See by physical therapy today. Encouraged on early ambulation. Continues to be n.p.o. No concerns per nursing. Reason For Visit: PERFORATED VISCUS Physical Exam Vital Signs: Temp Pulse Resp BP Pulse Ox 98.3 F 87 17 162/92 H 94 10/21/20 07:56 10/21/20 08:06 10/21/20 08:06 10/21/20 07:27 10/21/20 08:06 Intake & Output 10/20/20 10/21/20 10/22/20 06:59 06:59 06:59 Intake Total 800 3800 Output Total 725 1365 Balance 75 2435 Weight 77.2 kg 76.5 kg Additional comments: General appearance: PRESENT: no acute distress, cooperative, well-developed, well-nourished Head exam: PRESENT: atraumatic, normocephalic Eye exam: PRESENT: conjunctiva pink, EOMI, PERRLA. ABSENT: scleral icterus Mouth exam: PRESENT: moist, tongue midline Teeth exam: PRESENT: poor dentation Respiratory exam: PRESENT: symmetrical, unlabored, Room air. ABSENT: Expiratory wheezes, rales, rhonchi Cardiovascular exam: PRESENT: RRR. ABSENT: diastolic murmur, rubs, systolic murmur Pulses: PRESENT: normal dorsalis pedis pul Vascular exam: PRESENT: normal capillary refill GI/Abdominal exam: PRESENT: normal bowel sounds, soft, tenderness, other - Surgical incision with dressing in place. NG tube to suction. ABSENT: distended, guarding, mass, organolmegaly, rebound Rectal exam: PRESENT: deferred Extremities exam: PRESENT: full ROM. ABSENT: calf tenderness, clubbing, pedal edema Neurological exam: PRESENT: alert, awake, oriented to person, oriented to place, oriented to time, oriented to situation, CN II-XII grossly intact. ABSENT: motor sensory deficit Psychiatric exam: PRESENT: appropriate affect, normal mood. ABSENT: homicidal ideation, suicidal ideation Skin exam: PRESENT: dry, intact, warm. ABSENT: cyanosis, rash Results Laboratory Results: 10/21/20 04:43 10/21/20 04:43 10/21/20 10/21/20 04:43 04:43 WBC 13.3 H RBC 3.19 L Hgb 10.8 L Hct 31.4 L MCV 98 H MCH 33.9 H MCHC 34.5 RDW 13.5 Plt Count 266 Sodium 136.3 L Potassium 3.8 Chloride 107 Carbon Dioxide 24 Anion Gap 5 BUN 14 Creatinine 0.69 Est GFR ( Amer) > 60 Glucose 63 L Calcium 8.0 L 10/18/20 10/18/20 22:54 22:54 Creatine Kinase 237 H CK-MB (CK-2) 6.55 H Troponin I < 0.012 Impressions: Chest X-Ray 10/18/20 23:31 IMPRESSION: Findings concerning for free intra-abdominal air. Further evaluation with CT abdomen and pelvis is recommended if clinically appropriate. This report contains findings that may be critical for patient care. Findings were discussed with Dr. Null by Dr. Davidson via telephone on 10/18/2020 at 9:40 PM PST. Abdomen/Pelvis CT 10/19/20 00:44 IMPRESSION: 1. Pneumoperitoneum and scattered intermediate density fluid, likely hemorrhage. 2. This is likely due to a perforated gastric ulcer along the distal lesser curvature. 3. Colonic diverticulosis. Cannot exclude diverticulitis, but there is no suspicious colonic wall thickening. Assessment and Plan - Diagnosis (1) Asthma Qualifiers: Asthma severity: moderate Asthma persistence: persistent Is this a current diagnosis for this admission?: Yes (2) Chronic back pain Qualifiers: Back pain location: low back pain Back pain laterality: midline Sciatica presence: without sciatica Qualified Code(s): M54.5 - Low back pain; G89.29 - Other chronic pain Is this a current diagnosis for this admission?: Yes (3) Hypokalemia Is this a current diagnosis for this admission?: Yes (4) Perforated abdominal viscus Is this a current diagnosis for this admission?: Yes (5) Tobacco dependence Is this a current diagnosis for this admission?: Yes - Plan Summary Summary: Moderate persistent asthma: Without wheezing, not requiring O2 supplementation at this time. - Likely COPD/chronic bronchitis component due to the patient's heavy tobacco use. - Cnt DuoNeb twice daily scheduled x1 more day, plan to switch to prn tomorrow. - Has utilized Albuterol only x2 since Tuesday. - Avoid systemic steroids secondary to perforated peptic ulcer. - Currently n.p.o.; resume Singulair once tolerating oral. - Smoking cessation strongly encouraged. - Cnt Pulmonary toilet is encouraged with incentive spirometer, flutter valve, and early ambulation. Home therapy at this time consistent with albuterol inhaler prn, Singulair will hold on ICS for now, given recent perforated peptic ulcer. Consider implementing LABA therapy in outpatient setting. Pt will need PCP to f/u with in outpatient setting. Discharge planning consulted to aid in arranging PCP. Asthma stable at this time, continue to monitor. Chronic back pain: Pain well controlled with current therapy. - Patient reports chronic back pain greater than 6 months; unchanged from previous. - Cnt IV Tylenol and prn IV Morphine. - Pt is poor historian with questionable reliable report of her chronic opiate medications - Cnt will monitor for evidence of uncontrolled pain and/or withdrawal and adjust morphine dosing as indicated. - Strongly recommend establishing with a local PCP for further management of her pain. Patient states that she is followed by pain management provider in [place] and was prescribed oxycodone 20 mg every 6 hours. She further states that she typically only took 1-2 tabs daily and otherwise used [id number] medications for treatment of her pain. [place] controlled substance database was utilized (searched [place], [place], [place], [place], and [place]) to verify prescription use; no prescriptions were found. Hypokalemia: Resolved with repletion therapy. Cnt to monitor. Tobacco dependence Cessation strongly encouraged. Nicotine replacement therapies provided. Perforated abdominal viscus: Primary plan per Surgery. - Time Time Spent with patient: 25-34 minutes Smoking Cessation Education: 3 to 10 minutes Medications reviewed and adjusted accordingly: Yes Anticipated Discharge Disposition: Home, Self Care Anticipated Discharge Timeframe: TBD
[2020-10-22] MEDS: MORPHINE SULFATE 10 MG/ML INJ IV PRN ×6 (02:39→22:50)
[2020-10-22] MEDS: AMPICILLIN SODIUM/SULBACTAM NA 3 GM in NORMAL SALINE 100 ML IV SCH ×3 (05:33→21:32)
[2020-10-22] MEDS: RINGERS SOLUTION,LACTATED 1,000 ML IV PRN ×2 (05:37→15:57)
[2020-10-22] MEDS ORDERED: IPRATROPIUM/ALBUTEROL 0.5-2.5 MG/3 ML AMPUL NEB PRN (08:36)
[2020-10-22] MEDS: IPRATROPIUM/ALBUTEROL 0.5-2.5 MG/3 ML AMPUL NEB SCH ×2 (09:21→20:38)
[2020-10-22] MEDS: FLUCONAZOLE 200 MG/NS RTU 200 MG/100 ML RTUPB IV SCH (10:28)
[2020-10-22] MEDS: PANTOPRAZOLE SODIUM 40 MG VIAL IV SCH ×2 (10:28→21:32)
[2020-10-22 11:18] LABS: HEMATOCRIT 33.3 % (36.0-47.0); HEMOGLOBIN 11.4 g/dL (12.0-15.5); MEAN CORPUSCULAR HEMOGLOBIN 33.5 pg (27.0-33.4); MEAN CORPUSCULAR HGB CONC 34.3 g/dL (32.0-36.0); MEAN CORPUSCULAR VOLUME 98 fl (80-97); PLATELET COUNT 274 10^3/uL (150-450); RED BLOOD COUNT 3.42 10^6/uL (3.72-5.28); RED CELL DISTRIBUTION WIDTH 13.4 % (11.5-14.0); WHITE BLOOD COUNT 11.1 10^3/uL (4.0-10.5)
[2020-10-22 11:38] LABS: ANION GAP 9 (5-19); BLOOD UREA NITROGEN 6 mg/dL (7-20); CARBON DIOXIDE 19 mmol/L (22-30); CHLORIDE 106 mmol/L (98-107); GLUCOSE 74 mg/dL (75-110); POTASSIUM 3.4 mmol/L (3.6-5.0)
--- NOTE | 2020-10-22 11:59 | RADIOLOGY REPORT (SQ) ---
EXAM DESCRIPTION: UGI W/ SINGLE CONTRAST IMAGES COMPLETED DATE/TIME: 10/22/2020 10:21 am REASON FOR STUDY: through NG, eval for leak COMPARISON: None. TECHNIQUE: Under fluoroscopic guidance, patient ingested water soluble contrast. Fluoroscopic spot i mages and routine radiographic images acquired and stored on PACS. LIMITATIONS: None. FLUOROSCOPY TIME: FLUORO TIME: 1 minutes 14 seconds of fluoroscopy was used. 13 images saved to PACS. FINDINGS: NEUROMUSCULAR COORDINATION OF SWALLOW: Normal. No aspiration. ESOPHAGEAL MOTILITY: Normal peristalsis. No esophageal spasm. ESOPHAGEAL MUCOSA: Normal mucosa without masses or ulceration. GASTRO-ESOPHAGEAL JUNCTION: Small sliding hiatal hernia. Gastroesophageal reflux is noted. STOMACH: Mucosal thickening seen in the antrum of the stomach most likely related to postoperative ch anges. No extravasation or leak is seen. Remainder the stomach is unremarkable. NG tube is in plac e with the tip in the 4th portion of the duodenum. GASTRIC OUTLET: No delay in emptying. Normal pylorus. DUODENAL BULB: Normal distention. No spasm or ulceration. DUODENUM: Mucosa normal. No extrinsic masses or malrotation. Tip of the NG tube is in the 4th portio n the duodenum. PROXIMAL JEJUNUM: Normal mucosal pattern. No dilatation, segmentation, strictures or masses. NON-GI TRACT STRUCTURES: No significant finding. OTHER: No other significant finding. IMPRESSION: POSTOPERATIVE CHANGES SEEN IN THE ANTRUM OF THE STOMACH WITHOUT EVIDENCE OF EXTRAVASATIO N OR LEAK. SMALL SLIDING HIATAL HERNIA WITH MILD GASTROESOPHAGEAL REFLUX. NG TUBE TIP IS IN THE 4TH PORTION OF THE DUODENUM COMMENT: Quality ID [id number]: Final reports for procedures using fluoroscopy that document radiation exp osure indices, or exposure time and number of fluorographic images (if radiation exposure indices are not available) TECHNICAL DOCUMENTATION: JOB ID: [id number] 2010 [employer]- All Rights Reserved Reading location - IP/workstation name: [email or web address] [id number]
--- NOTE | 2020-10-22 15:49 | PDOC PROGRESS REPORT ---
Subjective Date:: 10/22/20 Subjective:: Patient seen on afternoon rounds. She is resting upright in bed comfortably on room air. NG tube has been removed. Small bowel series was completed this morning. Now on liquid diet. Does note some shortness of breath which he relates to the discomfort in her abdomen/surgical site. She has used her albuterol inhaler twice today. Will resume scheduled duo nebs. Continue to utilize incentive spirometry. Otherwise denies wheezing cough fever, chills, chest pain palpitations nausea vomiting. Encouraged continued ambulation. Discussed with nursing no concerns at this time. Reason For Visit: PERFORATED VISCUS Physical Exam Vital Signs: Temp Pulse Resp BP Pulse Ox 99.4 F 80 22 H 142/76 H 92 10/22/20 11:46 10/22/20 11:46 10/22/20 11:46 10/22/20 11:46 10/22/20 11:46 Intake & Output 10/21/20 10/22/20 10/23/20 06:59 06:59 06:59 Intake Total 3800 2400 100 Output Total 1365 3110 Balance 2435 -710 100 Weight 76.5 kg 77.1 kg Additional comments: General appearance: PRESENT: no acute distress, cooperative, well-developed, well-nourished Mouth exam: PRESENT: moist, tongue midline Respiratory exam: PRESENT: symmetrical, unlabored, Room air. Diffuse expiratory wheeze noted ABSENT rales, rhonchi Cardiovascular exam: PRESENT: RRR. ABSENT: diastolic murmur, rubs, systolic murmur GI/Abdominal exam: PRESENT: normal bowel sounds, soft, tenderness, other - Surgical incision with dressing in place. ABSENT: distended, guarding, mass, organolmegaly, rebound Extremities exam: PRESENT: full ROM. Neurological exam: PRESENT: alert, awake, oriented to person, oriented to place, oriented to time, oriented to situation, CN II-XII grossly intact. ABSENT: motor sensory deficit Psychiatric exam: PRESENT: appropriate affect, normal mood. ABSENT: homicidal ideation, suicidal ideation Skin exam: PRESENT: dry, intact, warm. ABSENT: cyanosis, rash Results Laboratory Results: 10/22/20 11:09 10/22/20 11:09 10/22/20 10/22/20 11:09 11:09 WBC 11.1 H RBC 3.42 L Hgb 11.4 L Hct 33.3 L MCV 98 H MCH 33.5 H MCHC 34.3 RDW 13.4 Plt Count 274 Sodium 134.2 L Potassium 3.4 L Chloride 106 Carbon Dioxide 19 L Anion Gap 9 BUN 6 L Creatinine 0.61 Est GFR ( Amer) > 60 Glucose 74 L Calcium 8.0 L 10/18/20 10/18/20 22:54 22:54 Creatine Kinase 237 H CK-MB (CK-2) 6.55 H Troponin I < 0.012 Impressions: Chest X-Ray 10/18/20 23:31 IMPRESSION: Findings concerning for free intra-abdominal air. Further evaluation with CT abdomen and pelvis is recommended if clinically appropriate. This report contains findings that may be critical for patient care. Findings were discussed with Dr. Null by Dr. Davidson via telephone on 10/18/2020 at 9:40 PM PST. Abdomen/Pelvis CT 10/19/20 00:44 IMPRESSION: 1. Pneumoperitoneum and scattered intermediate density fluid, likely hemorrhage. 2. This is likely due to a perforated gastric ulcer along the distal lesser curvature. 3. Colonic diverticulosis. Cannot exclude diverticulitis, but there is no suspicious colonic wall thickening. Upper GI Series-Limited 10/22/20 00:00 IMPRESSION: POSTOPERATIVE CHANGES SEEN IN THE ANTRUM OF THE STOMACH WITHOUT EVIDENCE OF EXTRAVASATION OR LEAK. SMALL SLIDING HIATAL HERNIA WITH MILD GASTROESOPHAGEAL REFLUX. NG TUBE TIP IS IN THE 4TH PORTION OF THE DUODENUM Assessment and Plan - Diagnosis (1) Asthma Qualifiers: Asthma severity: moderate Asthma persistence: persistent Is this a current diagnosis for this admission?: Yes (2) Chronic back pain Qualifiers: Back pain location: low back pain Back pain laterality: midline Sciatica presence: without sciatica Qualified Code(s): M54.5 - Low back pain; G89.29 - Other chronic pain Is this a current diagnosis for this admission?: Yes (3) Hypokalemia Is this a current diagnosis for this admission?: Yes (4) Perforated abdominal viscus Is this a current diagnosis for this admission?: Yes (5) Tobacco dependence Is this a current diagnosis for this admission?: Yes - Plan Summary Summary: Moderate persistent asthma: Not requiring supplemental O2 at this time. Wheezing on exam. - Likely COPD/chronic bronchitis component due to the patient's heavy tobacco use. - Cnt DuoNeb twice daily scheduled. - Increased albuterol use x1 day. - Avoid systemic steroids secondary to perforated peptic ulcer. - Currently n.p.o.; resume Singulair once tolerating oral, suspect this will help substantially. - Smoking cessation strongly encouraged. - Cnt Pulmonary toilet is encouraged with incentive spirometer, flutter valve, and early ambulation. Home therapy at this time consistent with albuterol inhaler prn, Singulair will hold on ICS for now, given recent perforated peptic ulcer. Consider implementing LABA/ALLA combination therapy. Once wheezing resolves will transition to LABA/ ALLA inhaler once daily. Given underlying hx cigarette use likely associated with COPD, should provide relief. Pt will need PCP to f/u with in outpatient setting. Discharge planning consulted to aid in arranging PCP. Asthma stable at this time, continue to monitor. Chronic back pain: Pain well controlled with current therapy. - Patient reports chronic back pain greater than 6 months; unchanged from previous. - IV Morphine as per surgery. - Pt is poor historian with questionable reliable report of her chronic opiate medications - Cnt will monitor for evidence of uncontrolled pain and/or withdrawal and adjust morphine dosing as indicated. - Strongly recommend establishing with a local PCP for further management of her pain. Patient states that she is followed by pain management provider in [place] and was prescribed oxycodone 20 mg every 6 hours. She further states that she typically only took 1-2 tabs daily and otherwise used [id number] medications for treatment of her pain. [place] controlled substance database was utilized (searched [place], [place], [place], [place], and [place]) to verify prescription use; no prescriptions were found. Hypokalemia: 3.4 today, will replete and cnt to monitor. Tobacco dependence Cessation strongly encouraged. Nicotine replacement therapies provided. Perforated abdominal viscus: Primary plan per Surgery. - Time Time Spent with patient: 15-24 minutes Smoking Cessation Education: 3 to 10 minutes Medications reviewed and adjusted accordingly: Yes Anticipated Discharge Disposition: Home, Self Care Anticipated Discharge Timeframe: tbd
--- NOTE | 2020-10-22 16:31 | PDOC PROGRESS REPORT ---
Subjective Date:: 10/22/20 Reason For Visit: PERFORATED VISCUS Physical Exam Vital Signs: Temp Pulse Resp BP Pulse Ox 99.4 F 80 22 H 142/76 H 92 10/22/20 11:46 10/22/20 11:46 10/22/20 11:46 10/22/20 11:46 10/22/20 11:46 Intake & Output 10/21/20 10/22/20 10/23/20 06:59 06:59 06:59 Intake Total 3800 2400 1200 Output Total 1365 3110 500 Balance 2435 -710 700 Weight 76.5 kg 77.1 kg Results Laboratory Results: 10/22/20 11:09 10/22/20 11:09 10/22/20 10/22/20 11:09 11:09 WBC 11.1 H RBC 3.42 L Hgb 11.4 L Hct 33.3 L MCV 98 H MCH 33.5 H MCHC 34.3 RDW 13.4 Plt Count 274 Sodium 134.2 L Potassium 3.4 L Chloride 106 Carbon Dioxide 19 L Anion Gap 9 BUN 6 L Creatinine 0.61 Est GFR ( Amer) > 60 Glucose 74 L Calcium 8.0 L 10/18/20 10/18/20 22:54 22:54 Creatine Kinase 237 H CK-MB (CK-2) 6.55 H Troponin I < 0.012 Impressions: Chest X-Ray 10/18/20 23:31 IMPRESSION: Findings concerning for free intra-abdominal air. Further evaluation with CT abdomen and pelvis is recommended if clinically appropriate. This report contains findings that may be critical for patient care. Findings were discussed with Dr. Null by Dr. Davidson via telephone on 10/18/2020 at 9:40 PM [facility]. Abdomen/Pelvis CT 10/19/20 00:44 IMPRESSION: 1. Pneumoperitoneum and scattered intermediate density fluid, likely hemorrhage. 2. This is likely due to a perforated gastric ulcer along the distal lesser curvature. 3. Colonic diverticulosis. Cannot exclude diverticulitis, but there is no suspicious colonic wall thickening. Upper GI Series-Limited 10/22/20 00:00 IMPRESSION: POSTOPERATIVE CHANGES SEEN IN THE ANTRUM OF THE STOMACH WITHOUT EVIDENCE OF EXTRAVASATION OR LEAK. SMALL SLIDING HIATAL HERNIA WITH MILD GASTROESOPHAGEAL REFLUX. NG TUBE TIP IS IN THE 4TH PORTION OF THE DUODENUM Assessment & Plan - Diagnosis (1) Perforated gastric ulcer Qualifiers: Gastric ulcer chronicity: acute Qualified Code(s): K25.1 - Acute gastric ulcer with perforation Is this a current diagnosis for this admission?: Yes - Time Anticipated Discharge Disposition: Home, Self Care Anticipated Discharge Timeframe: within 72 hours - Plan Summary Plan Summary: 50-year-old female status post repair of perforated gastric ulcer. The patient had an upper GI series today which showed no evidence of leak. Her NG tube has remained removed. Start clear liquid diet. No carbonated beverages. Out of bed to chair. Okay to shower. Assuming patient tolerates her current diet, she may be advanced tomorrow.
[2020-10-23] MEDS: MORPHINE SULFATE 10 MG/ML INJ IV PRN ×5 (03:06→23:01)
[2020-10-23] MEDS: AMPICILLIN SODIUM/SULBACTAM NA 3 GM in NORMAL SALINE 100 ML IV SCH ×3 (05:18→23:01)
[2020-10-23] MEDS: IPRATROPIUM/ALBUTEROL 0.5-2.5 MG/3 ML AMPUL NEB SCH (08:41)
[2020-10-23 10:23] LABS: ANION GAP 10 (5-19); BLOOD UREA NITROGEN 3 mg/dL (7-20); CALCIUM 8.2 mg/dL (8.4-10.2); CARBON DIOXIDE 19 mmol/L (22-30); CHLORIDE 105 mmol/L (98-107); GLUCOSE 104 mg/dL (75-110)
[2020-10-23] MEDS ORDERED: POTASSI CL 20 MEQ/50 ML RIDER 20 MEQ/50 ML RTUPB IV ONE (11:30)
[2020-10-23] MEDS: PANTOPRAZOLE SODIUM 40 MG VIAL IV SCH (11:47)
[2020-10-23] MEDS: FLUCONAZOLE 200 MG/NS RTU 200 MG/100 ML RTUPB IV SCH (11:48)
--- NOTE | 2020-10-23 12:15 | EKG REPORT ---
SEVERITY:- BORDERLINE ECG - SINUS RHYTHM BORDERLINE LEFT AXIS DEVIATION BORDERLINE R WAVE PROGRESSION, ANTERIOR LEADS : Confirmed by: Cj Beal MD 23-Oct-2020 12:15:12
[2020-10-23] MEDS ORDERED: IPRATROPIUM/ALBUTEROL 0.5-2.5 MG/3 ML AMPUL NEB PRN (13:04)
--- NOTE | 2020-10-23 13:05 | PDOC PROGRESS REPORT ---
Subjective Date:: 10/23/20 Subjective:: Patient seen on morning rounds. Prior to evaluation she is seen walking with physical therapy. On evaluation she is seen sitting upright in bed with full liquid meal in front of her. She states that she has been able to eat. She has had what she describes as a loose bowel movement. Continues to have some abdominal discomfort. Has utilized albuterol inhaler on average twice daily past 2 days, which he relates to the shortness of breath secondary to fear of taking a deep breath given abdominal pain. But denies any wheezing or cough. We will implement ICS, continue duo nebs, continue incentive spirometer. Otherwise denies fever, chills, chest pain, palpitations, nausea, vomiting. Discussed with nurse. Potassium found to be low on morning labs, will replete and follow-up lab. Reason For Visit: PERFORATED VISCUS Physical Exam Vital Signs: Temp Pulse Resp BP Pulse Ox 99.1 F 76 20 148/78 H 99 10/22/20 23:00 10/22/20 23:00 10/22/20 23:00 10/22/20 23:00 10/22/20 23:00 Intake & Output 10/22/20 10/23/20 10/24/20 06:59 06:59 06:59 Intake Total 2400 2200 Output Total 3110 500 Balance -710 1700 Weight 77.1 kg 77.1 kg Additional comments: General appearance: PRESENT: no acute distress, cooperative, well-developed, well-nourished Mouth exam: PRESENT: moist, tongue midline Respiratory exam: PRESENT: symmetrical, unlabored, Room air. Diffuse expiratory wheeze noted primarily in the right lower lung field. ABSENT rales, rhonchi Cardiovascular exam: PRESENT: RRR. GI/Abdominal exam: PRESENT: normal bowel sounds, soft, tenderness, other - Surgical incision with dressing in place. Extremities exam: PRESENT: full ROM. Neurological exam: PRESENT: alert, awake, oriented to person, oriented to place, oriented to time, oriented to situation, CN II-XII grossly intact. ABSENT: motor sensory deficit Psychiatric exam: PRESENT: appropriate affect, normal mood. ABSENT: homicidal ideation, suicidal ideation Skin exam: PRESENT: dry, intact, warm. ABSENT: cyanosis, rash Results Laboratory Results: 10/22/20 11:09 10/22/20 11:09 10/22/20 10/22/20 11:09 11:09 WBC 11.1 H RBC 3.42 L Hgb 11.4 L Hct 33.3 L MCV 98 H MCH 33.5 H MCHC 34.3 RDW 13.4 Plt Count 274 Sodium 134.2 L Potassium 3.4 L Chloride 106 Carbon Dioxide 19 L Anion Gap 9 BUN 6 L Creatinine 0.61 Est GFR ( Amer) > 60 Glucose 74 L Calcium 8.0 L 10/18/20 10/18/20 22:54 22:54 Creatine Kinase 237 H CK-MB (CK-2) 6.55 H Troponin I < 0.012 Impressions: Chest X-Ray 10/18/20 23:31 IMPRESSION: Findings concerning for free intra-abdominal air. Further evaluation with CT abdomen and pelvis is recommended if clinically appropriate. This report contains findings that may be critical for patient care. Findings were discussed with Dr. Null by Dr. Davidson via telephone on 10/18/2020 at 9:40 PM [facility]. Abdomen/Pelvis CT 10/19/20 00:44 IMPRESSION: 1. Pneumoperitoneum and scattered intermediate density fluid, likely hemorrhage. 2. This is likely due to a perforated gastric ulcer along the distal lesser curvature. 3. Colonic diverticulosis. Cannot exclude diverticulitis, but there is no suspicious colonic wall thickening. Upper GI Series-Limited 10/22/20 00:00 IMPRESSION: POSTOPERATIVE CHANGES SEEN IN THE ANTRUM OF THE STOMACH WITHOUT EVIDENCE OF EXTRAVASATION OR LEAK. SMALL SLIDING HIATAL HERNIA WITH MILD GASTROESOPHAGEAL REFLUX. NG TUBE TIP IS IN THE 4TH PORTION OF THE DUODENUM Assessment and Plan - Diagnosis (1) Asthma Qualifiers: Asthma severity: moderate Asthma persistence: persistent Is this a current diagnosis for this admission?: Yes (2) Chronic back pain Qualifiers: Back pain location: low back pain Back pain laterality: midline Sciatica presence: without sciatica Qualified Code(s): M54.5 - Low back pain; G89.29 - Other chronic pain Is this a current diagnosis for this admission?: Yes (3) Hypokalemia Is this a current diagnosis for this admission?: Yes (4) Perforated abdominal viscus Is this a current diagnosis for this admission?: Yes (5) Tobacco dependence Is this a current diagnosis for this admission?: Yes - Plan Summary Summary: Moderate persistent asthma: Not requiring supplemental O2 at this time. Wheezing has improved with mild expiratory wheeze persistent on right lower lung field. - Likely has COPD/chronic bronchitis component due to the patient's heavy tobacco use. - Cnt DuoNeb twice daily prn. - Utilizing rescue inhaler ~2x/day - Avoid systemic steroids secondary to perforated peptic ulcer. - Diet has advanced, resume Singulair once tolerating oral, suspect this will help substantially. - Smoking cessation strongly encouraged. - Cnt Pulmonary toilet is encouraged with incentive spirometer, flutter valve, and early ambulation. Patient tells me she was taking oral steroids because she could not afford ICS inhaler. We will implement ICS/Ynes inhaler here she is to use this once daily. We will make duo nebs as needed. Educated her on use of ICS in the morning and continued use of albuterol as needed for rescue. Chronic back pain: Pain well controlled with current therapy. - Patient reports chronic back pain greater than 6 months; unchanged from previous. - IV Morphine as per surgery. - Pt is poor historian with questionable reliable report of her chronic opiate medications - Cnt will monitor for evidence of uncontrolled pain and/or withdrawal and adjust morphine dosing as indicated. - Strongly recommend establishing with a local PCP for further management of her pain. Patient states that she is followed by pain management provider in [place] and was prescribed oxycodone 20 mg every 6 hours. She further states that she typically only took 1-2 tabs daily and otherwise used [id number] medications for treatment of her pain. [place] controlled substance database was utilized (searched [place], [place], [place], [place], and [place]) to verify prescription use; no prescriptions were found. Hypokalemia: 3.0 today, will replete wit hIV and f/u lab. Cnt to monitor. Tobacco dependence Cessation strongly encouraged. Nicotine replacement therapies provided. Perforated abdominal viscus: Primary plan per Surgery. - Time Time Spent with patient: 15-24 minutes Smoking Cessation Education: 3 to 10 minutes Medications reviewed and adjusted accordingly: Yes Anticipated Discharge Disposition: Home, Self Care Anticipated Discharge Timeframe: tbd
[2020-10-23] MEDS: FLUTICASONE/VILANTEROL 100-25 MCG/DOSE IH SCH (15:58)
[2020-10-24] MEDS: MORPHINE SULFATE 10 MG/ML INJ IV PRN ×2 (03:51→09:06)
[2020-10-24] MEDS: AMPICILLIN SODIUM/SULBACTAM NA 3 GM in NORMAL SALINE 100 ML IV SCH (05:37)
--- NOTE | 2020-10-24 08:28 | PDOC DISCHARGE SUMMARY ---
General - Admit/Disc Date/PCP Admission Date/Primary Care Provider: 10/19/20 02:01 Discharge Date: 10/24/20 - Discharge Diagnosis Final Diagnosis: perforated gastric ulcer - Assessment Summary: pt admitted for perforated gastric ulcer from nsaids use pt taken to or for ex lap and closure of ulcer post op course uncomplicated pt had f/u ugi showing no leak started on diet and advanced no madiosn reg diet ready for dc home will dc home on protonix 20mg bid will f/u in surgery clinic next wk one of 2 [place] drains removed today on day of discharge second drain will be removed n ext wk in clinic - Additional Information Resuscitation Status: Full Code Discharge Diet: As Tolerated Discharge Activity: No Lifting Over 10 Pounds Referrals: [facility] [Outside] - 11/03/20 10:00 am (TELEPHONE APPT) Prescriptions: Hydrocodone/Acetaminophen [[place] 10-325 mg Tablet] 1 tab PO Q6HP PRN #10 tablet PRN Reason: Pantoprazole Sodium [Protonix [address] Tablet] 20 mg PO BID #60 tablet. Home Medications: Albuterol Sulfate [Proair HFA Inhalation Aerosol 8.5 gm MDI] 2 puff IH Q6HP PRN 10/19/20 Montelukast Sodium [Singulair 10 mg Tablet] 10 mg PO QHS 10/19/20 Oxycodone HCl 20 mg PO QID 10/19/20 Prednisone [Deltasone 10 mg Tablet] 10 mg PO DAILY 10/19/20 Hydrocodone/Acetaminophen [[place] 10-325 mg Tablet] 1 tab PO Q6HP PRN #10 tablet 10/24/20 Pantoprazole Sodium [Protonix [address] Tablet] 20 mg PO BID #60 tablet. 10/24/20 History of Present Illiness History of Present Illness: NORMA BARDALES is a 50 year old female Physical Exam Vital Signs: Temp Pulse Resp BP Pulse Ox 98.4 F 71 17 172/79 H 95 10/24/20 07:55 10/23/20 23:41 10/23/20 23:41 10/23/20 23:41 10/23/20 23:41 Intake & Output 10/23/20 10/24/20 10/25/20 06:59 06:59 06:59 Intake Total 2200 810 Output Total 500 315 Balance 1700 495 Weight 77.1 kg 77.1 kg Results Laboratory Results: WBC 11.1 10^3/uL (4.0-10.5) H 10/22/20 11:09 RBC 3.42 10^6/uL (3.72-5.28) L 10/22/20 11:09 Hgb 11.4 g/dL (12.0-15.5) L 10/22/20 11:09 Hct 33.3 % (36.0-47.0) L 10/22/20 11:09 MCV 98 fl (80-97) H 10/22/20 11:09 MCH 33.5 pg (27.0-33.4) H 10/22/20 11:09 MCHC 34.3 g/dL (32.0-36.0) 10/22/20 11:09 RDW 13.4 % (11.5-14.0) 10/22/20 11:09 Plt Count 274 10^3/uL (150-450) 10/22/20 11:09 Lymph % (Auto) 21.1 % (13-45) 10/18/20 22:54 [place] % (Auto) 2.6 % (3-13) L 10/18/20 22:54 Eos % (Auto) 0.7 % (0-6) 10/18/20 22:54 Baso % (Auto) 2.1 % (0-2) H 10/18/20 22:54 Absolute Neuts (auto) 11.1 10^3/uL (1.7-8.2) H 10/18/20 22:54 Absolute Lymphs (auto) 3.2 10^3/uL (0.5-4.7) 10/18/20 22:54 Absolute Monos (auto) 0.4 10^3/uL (0.1-1.4) 10/18/20 22:54 Absolute Eos (auto) 0.1 10^3/uL (0.0-0.6) 10/18/20 22:54 Absolute Basos (auto) 0.3 10^3/uL (0.0-0.2) H 10/18/20 22:54 Seg Neutrophils % 73.5 % (42-78) 10/18/20 22:54 Sodium 134.0 mmol/L (137-145) L 10/23/20 09:52 Potassium 3.8 mmol/L (3.6-5.0) 10/23/20 15:39 Chloride 105 mmol/L (98-107) 10/23/20 09:52 Carbon Dioxide 19 mmol/L (22-30) L 10/23/20 09:52 Anion Gap 10 (5-19) 10/23/20 09:52 BUN 3 mg/dL (7-20) L 10/23/20 09:52 Creatinine 0.62 mg/dL (0.52-1.25) 10/23/20 09:52 Est GFR ( Amer) > 60 (>60) 10/23/20 09:52 Est GFR (MDRD) Non-Af > 60 (>60) 10/23/20 09:52 Glucose 104 mg/dL (75-110) 10/23/20 09:52 POC Glucose 72 mg/dL (70-110) 10/22/20 11:46 Calcium 8.2 mg/dL (8.4-10.2) L 10/23/20 09:52 Total Bilirubin 0.5 mg/dL (0.2-1.3) 10/18/20 22:54 Direct Bilirubin 0.3 mg/dL (0.0-0.4) 10/18/20 22:54 Neonat Total Bilirubin Not Reportable 10/18/20 22:54 Neonat Direct Bilirubin Not Reportable 10/18/20 22:54 Neonat Indirect Bili Not Reportable 10/18/20 22:54 AST 36 U/L (14-36) 10/18/20 22:54 ALT 15 U/L (<35) 10/18/20 22:54 Alkaline Phosphatase 82 U/L (38-126) 10/18/20 22:54 Creatine Kinase 237 U/L (30-135) H 10/18/20 22:54 CK-MB (CK-2) 6.55 ng/mL (<4.55) H 10/18/20 22:54 Troponin I < 0.012 ng/mL 10/18/20 22:54 Total Protein 6.8 g/dL (6.3-8.2) 10/18/20 22:54 Albumin 3.8 g/dL (3.5-5.0) 10/18/20 22:54 Influenza A (RT-PCR) NEGATIVE (NEGATIVE) 10/19/20 01:49 Influenza B (RT-PCR) NEGATIVE (NEGATIVE) 10/19/20 01:49 RSV (RT-PCR) NEGATIVE (NEGATIVE) 10/19/20 01:49 SARS-CoV-2 Rap RNA(RT-PCR) NEGATIVE (NEGATIVE) 10/19/20 01:49 10/18/20 22:54 CK-MB (CK-2) 6.55 H Troponin I < 0.012 Impressions: Chest X-Ray 10/18/20 23:31 IMPRESSION: Findings concerning for free intra-abdominal air. Further evaluation with CT abdomen and pelvis is recommended if clinically appropriate. This report contains findings that may be critical for patient care. Findings were discussed with Dr. Null by Dr. Davidson via telephone on 10/18/2020 at 9:40 PM [facility]. Abdomen/Pelvis CT 10/19/20 00:44 IMPRESSION: 1. Pneumoperitoneum and scattered intermediate density fluid, likely hemorrhage. 2. This is likely due to a perforated gastric ulcer along the distal lesser curvature. 3. Colonic diverticulosis. Cannot exclude diverticulitis, but there is no suspicious colonic wall thickening. Upper GI Series-Limited 10/22/20 00:00 IMPRESSION: POSTOPERATIVE CHANGES SEEN IN THE ANTRUM OF THE STOMACH WITHOUT EVIDENCE OF EXTRAVASATION OR LEAK. SMALL SLIDING HIATAL HERNIA WITH MILD GASTROESOPHAGEAL REFLUX. NG TUBE TIP IS IN THE 4TH PORTION OF THE DUODENUM
[2020-10-24] MEDS: FLUTICASONE/VILANTEROL 100-25 MCG/DOSE IH SCH (09:06)
[2020-10-24 09:31] VITALS: BP 148/78
[2020-10-24] MEDS: FLUCONAZOLE 200 MG/NS RTU 200 MG/100 ML RTUPB IV SCH (11:57)
== END 2020-10-24 11:56 | disposition home or self-care (01) | DRG 328 ==
LOC: ER 22:43 → EH 10-19 02:01 → 3W 10-19 07:03 → 4S 10-22 20:19
PROVIDERS: ADMIT Surgery; ATTEND Surgery
PROC: 0W9G00Z Drainage of Peritoneal Cavity with Drainage Device, Open Approach (ICD-10-PCS; 2020-10-19)
PROC: 0DU707Z Supplement Stomach, Pylorus with Autologous Tissue Substitute, Open Approach (ICD-10-PCS; principal; 2020-10-19 03:30)
PROC: 3E02340 Introduction of Influenza Vaccine into Muscle, Percutaneous Approach (ICD-10-PCS; 2020-10-24)
DX: K25.1 Acute gastric ulcer with perforation (principal); Z20.822 Contact with and (suspected) exposure to COVID-19; T39.395A Adverse effect of other nonsteroidal anti-inflammatory drugs [NSAID], initial encounter; Y92.9 Unspecified place or not applicable; E66.9 Obesity, unspecified; G89.29 Other chronic pain; J45.40 Moderate persistent asthma, uncomplicated; M54.5 Low back pain; E87.6 Hypokalemia; F17.210 Nicotine dependence, cigarettes, uncomplicated; Z79.52 Long term (current) use of systemic steroids; Z23 Encounter for immunization; Z79.899 Other long term (current) drug therapy
CPT/HCPCS: 00790; 36415; 71045; 74177; 74240; 80048; 80053; 82550; 82553; 82962; 84132; 84484; 85025; 85027; 87040; 90471; 90686; 93005; 93010; 94640; 94799; 96361; 96365; 96375; 99140; 99285; 0241U; C1758; C9113; C9290; C9803; G0008; J0131; J0295; J0330; J1100; J1450; J1885; J2250; J2270; J2405; J2543; J2704; J2795; J3010; J3480; J3490; J7030; J7050; J7120; S0028